=== PATIENT | female | born 1985 | race Caucasian/White ===

== ENCOUNTER 2019-06-10 09:12 | Outpatient (RCR) | payer OTHER, SELFPAY ==
--- NOTE | 2019-06-10 15:30 | OT.OP.EVAL ---
Visit Care Team Role Provider Type Richie Hargrove Attending Provider Non-Staff Primary Care Provider Referring Provider Specialty: Medical Address: [address] [place] [address], [place], [address] Fax: Email: Occupational Therapy Initial Evaluation OT Outpatient Adult Evaluation Start: 06/15/19 15:13 Freq: Status: Active Protocol: Document 06/10/19 15:13 AMS (Rec: 06/15/19 15:30 AMS [email or web address]) General Information Visit Start Time 09:30 Visit Stop Time 10:15 Total Visit Minutes 45 Plan of Care Dates 06/10/19-09/02/19 Insurance Information - EVAL CHARGE only Treatment Setting Outpatient Care Note Type Initial Evaluation Referring Physician Richie Hargrove MD Goals Shelter Goals 1. Patient will be modified independent with home exercise program for left third digit utilizing provided written and visual instructions from therapist. 2. Patient will present with increased ability to actively engage in meaningful activities with incorporation of the left hand due to reduced pain/discomfort; this will be evidenced by Teodora indicating 1-2 out of 10 on the Pain Assessment Grid relative to the left third digit. 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 PMH: Significant for ; headaches; seizures. Evaluation Findings: Teodora reported that she suffered a fracture to the radial side of L 3rd digit/distal proximal phalanx at PIP joint approximately a 1 and 1/2 ago; she denied h/o of therapy and /or use of splint. She reported that she did 'try to juliane tape' the 3rd digit to an adjacent finger. Mild swelling of 3rd digit noted; ( -) use of conservative methods of swelling management. Decreased strength of 3rd digit w/ extension; decreased stability of PIP joint noted with application of force radially. Increased mobility/ laxiety noted at PIP into extension when compared to R 3rd digit. Outpatient OT is recommended to address these areas in order to maximize Teodora's success w/ active engagement in meaningful activities in a variety of environments. Instructed in manual massage, conservative swelling management techniques ( elevation, manual massage, contrast baths, ice massage), basic joint protection ( avoidance of positions that encourage deformity) and exercises w/ use of medium soft red theraputty ( stabilization). Comment 12 weeks Treatment Frequency Once a Week Therapeutic Contents Active Range of Motion,Client Education,Cognitive Skills Development,Functional Activities,Home Exercise Program,Joint Protection, Manual Therapy,Education, Neurodevelopment Treatment, Neuromuscular Re-Education, Self-Care,Stretching/ Flexibility Activities, Therapeutic Activities, Therapeutic Exercises, Modalities,Sensory Re- education Modalities As Needed,As Prescribed
--- NOTE | 2019-08-18 11:32 | OT.OP.DC ---
Visit Care Team Role Provider Type Richie Hargrove Attending Provider Non-Staff Primary Care Provider Referring Provider Address: [address] [place] [address], [place], [address] Fax: Email: OT Outpatient OT Outpatient Adult Evaluation Start: 06/15/19 15:13 Freq: Status: Active Protocol: Document 06/10/19 15:13 AMS (Rec: 06/15/19 15:30 AMS [email or web address]) General Information Session Time Visit Start Time 09:30 Visit Stop Time 10:15 Total Visit Minutes 45 Visit Information Plan of Care Dates 06/10/19-09/02/19 Insurance Information - EVAL CHARGE only Setting Treatment Setting Outpatient Care Visit Type Note Type Initial Evaluation Referral Referring Physician Richie Hargrove MD Goals [facility] Goals Breaker Off Goals 1. Patient will be modified independent with home exercise program for left third digit utilizing provided written and visual instructions from therapist. 2. Patient will present with increased ability to actively engage in meaningful activities with incorporation of the left hand due to reduced pain/discomfort; this will be evidenced by Teodora indicating 1-2 out of 10 on the Pain Assessment Grid relative to the left third digit. 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 PMH: Significant for ; headaches; seizures. Evaluation Findings: Teodora reported that she suffered a fracture to the radial side of L 3rd digit/distal proximal phalanx at PIP joint approximately a 1 and 1/2 ago; she denied h/o of therapy and /or use of splint. She reported that she did 'try to juliane tape' the 3rd digit to an adjacent finger. Mild swelling of 3rd digit noted; ( -) use of conservative methods of swelling management. Decreased strength of 3rd digit w/ extension; decreased stability of PIP joint noted with application of force radially. Increased mobility/ laxiety noted at PIP into extension when compared to R 3rd digit. Outpatient OT is recommended to address these areas in order to maximize Teodora's success w/ active engagement in meaningful activities in a variety of environments. Instructed in manual massage, conservative swelling management techniques ( elevation, manual massage, contrast baths, ice massage), basic joint protection ( avoidance of positions that encourage deformity) and exercises w/ use of medium soft red theraputty ( stabilization). Plan Comment 12 weeks Treatment Frequency Once a Week Therapeutic Contents Active Range of Motion,Client Education,Cognitive Skills Development,Functional Activities,Home Exercise Program,Joint Protection, Manual Therapy,Education, Neurodevelopment Treatment, Neuromuscular Re-Education, Self-Care,Stretching/ Flexibility Activities, Therapeutic Activities, Therapeutic Exercises, Modalities,Sensory Re- education Modalities As Needed,As Prescribed Sensory Assessment Sensory Profile2 Functional Wrist/Hand Scan Hand Side OT Outpatient Treatment Note - Adult Start: 06/15/19 15:13 Freq: Status: Active Protocol: Document 08/18/19 11:30 AMS (Rec: 08/18/19 11:32 AMS [email or web address]) OT Outpatient Adult Treatment Note Visit Information Visit Number [id number] Setting Treatment Setting Outpatient Care Visit Type Note Type Discharge Summary - Subjective Observations Per [facility] [employer] staff, patient indicated over -the-telephone that they ( patient and her ) are in the middle of moving. Thus, patient to be d/c from outpatient OT. - Objective [facility] Goals ALL GOALS D/C OF 08/18/19 1. Patient will be modified independent with home exercise program for left third digit utilizing provided written and visual instructions from therapist. 2. Patient will present with increased ability to actively engage in meaningful activities with incorporation of the left hand due to reduced pain/discomfort; this will be evidenced by Teodora indicating 1-2 out of 10 on the Pain Assessment Grid relative to the left third digit. - - Assessment Assessment of Improvement Per [facility] [employer] staff, patient indicated over -the-telephone that they ( patient and her ) are in the middle of moving. Thus, patient to be d/c from outpatient OT. - Plan Therapy Recommendations Discharge from Occupational Therapy
== END 2019-08-25 07:42 ==
LOC: OT 09:12
PROVIDERS: PCP Family Medicine; Referring Provider Family Medicine; Visit Provider Family Medicine
DX: M79.642 Pain in left hand (principal)
CPT/HCPCS: 97165

== ENCOUNTER → 2019-08-31 09:30 | Outpatient (CLI) | payer OTHER, SELFPAY ==
[2019-09-01 19:00] LABS: Strep Grp B PCR NEG for Grp B Strep
== END ==
PROVIDERS: PCP Family Medicine; Visit Provider Family Medicine
DX: Z34.90 Encounter for supervision of normal pregnancy, unspecified, unspecified trimester (principal); Z3A.36 36 weeks gestation of pregnancy
CPT/HCPCS: 87653

== ENCOUNTER → 2019-09-27 12:47 | Outpatient (CLI) | payer OTHER, SELFPAY ==
[2019-09-29 19:05] LABS: COVID19 Sendout Not Detected (Not Detect)
== END ==
PROVIDERS: PCP Family Medicine; Visit Provider Physician Assistant
DX: Z11.59 Encounter for screening for other viral diseases (principal)
CPT/HCPCS: 87635

== ENCOUNTER 2019-09-30 19:04 | Inpatient (IN) | payer OTHER, SELFPAY ==
[2019-09-30 19:31] VITALS: BP 138/77
[2019-09-30 19:52] LABS: Add Manual Diff / Slide Review NO; Basophils Absolute Auto 100 /uL (0-100); Basophils Percent Auto 0.6 % (0-2); Eosinophils Absolute Auto 200 /uL (0-450); Eosinophils Percent Auto 1.6 % (2-4); Hematocrit 37.5 % (36-46); Hemoglobin 12.6 g/dL (12.0-16.0); Lymphocytes Absolute Auto 2300 /uL (1100-4500); Lymphocytes Percent Auto 17.9 % (25-40); Mean Corpuscular HGB Conc 33.6 % (30-36); Mean Corpuscular Hemoglobin 30.8 PG (26-34); Mean Corpuscular Volume 91.6 fL (80-100); Monocytes Absolute Auto 900 /uL (0-900); Monocytes Percent Auto 7.4 % (3-14); Neutrophils Absolute Auto 9200 /uL (1500-7000); Neutrophils Percent Auto 72.5 % (50-75); Platelet Count 222 X10^3/uL (150-400); Red Blood Cell Count 4.09 X10^6/uL (4.0-5.2); Red Cell Distribution Width 13.8 % (11.6-14.8); White Blood Cell Count 12.7 X10^3/uL (4.5-11.0)
[2019-09-30] MEDS: miSOPROStoL 25 MCG TABLET VAG (20:20)
[2019-10-01] MEDS: LACTATED RINGERS 1,000 ML 100 ML IV ×3 (02:26→08:45)
[2019-10-01] MEDS: FENT 2MCG/ML BUPIV 0.125% EPI 200 MCG/100 ML PLAST..BAG 10 MCG EPIDURAL (07:15)
--- NOTE | 2019-10-01 07:53 | P.HPOB_ITS ---
OB HPI Date/Time Date of admission: 09/30/19 Date Patient Seen: 10/01/19 Time Patient Seen: 08:00 History of Present Condition Chief complaint: maternity : 1 Para: 0 Estimated Date of Delivery: 09/23/19 Estimated Gestational Age (weeks): 41w1d Narrative: Teodora Garcia is a 34 year old at 41w1d who presented for IOL due to post-dates. Pt has been feeling well. She denies any contractions, vaginal bleeding, or LOF. She has been feeling her baby move regularly. Indications Indication for induction OB: post dates History of Present care: good care, initiated at week # (10) and pounds weight gain (52) Dating criteria: LMP confirmed by 1st trimester US Ultrasounds: normal 1st trimester US and normal mid trimester US Obstetrical complications: none Medical complications: none Preadmission Labs -: Antibody screen: negative, GBS status: negative, HBsAG: negative, HIV: negative and RPR/VDLR: negative -: Chlamydia screen: not detected and Gonorrhea screen: not detected -: Rubella: immune and Varicella: immune HCT: 37.5 HCAB: negative PAP: Normal Integrated screen: Negative 1 hr GTT: 129 Evaluation Evaluation Baseline heart rate: 130 Variability: Moderate (11-25) monitor accelerations: Present monitor decelerations: Absent Category of Tracing: I Cervical dilation (cm): 9 Cervical effacement (%): 100 station: -2 Laboratory results: Laboratory Tests 09/30/19 09/30/19 19:35 19:35 WBC 12.7 H RBC 4.09 Hgb 12.6 Hct 37.5 MCV 91.6 MCH 30.8 MCHC 33.6 RDW 13.8 Plt Count 222 Neut % (Auto) 72.5 Lymph % (Auto) 17.9 L [place] % (Auto) 7.4 Eos % (Auto) 1.6 L Baso % (Auto) 0.6 Neut # (Auto) 9200 H Lymph # (Auto) 2300 [place] # (Auto) 900 Eos # (Auto) 200 Baso # (Auto) 100 Blood Type O Positive Antibody Screen Negative Comments: AROM performed after informed consent with production of clear fluid [facility] Medical History (Updated 09/06/19 @ 22:24 by Aleksandra Gonzalez) Acne vulgaris (Acute) Allergies (Chronic ~1985) Asthma (Acute ~2000) Chicken pox (Resolved ~1988) Eczema (Chronic ~1987) Epilepsy (Acute) Gastric pain (Acute) Hemangioma (Acute ~2011) Migraine (Acute ~1990) Neck pain (Acute) Obesity (Acute) Pain in finger of left hand (Acute) Raynauds phenomenon (Acute) Seizure (Inactive ~1990) Surgical History (Updated 09/06/19 @ 22:24 by Aleksandra Gonzalez) Anesthesia (Resolved) History of biopsy (Acute ~2012) S/P tonsillectomy and adenoidectomy (Acute ~2001) [place] teeth removed (Acute ~2007) Family History (Updated 09/06/19 @ 22:28 by Aleksandra Gonzalez) Father Immunodeficiency Nut allergy Mother Skin cancer Skin cancer, basal cell Grandfather Lung cancer Smoker Grandmother Lung cancer Grandfather Parkinsons Diabetes mellitus Stroke Grandmother Alzheimer disease Parkinsons Lymphoma History of heart disease Hypertension Social History marital status: unmarried,living together household members: significant other pets and animals: No education level: master's degree occupational status: employed current occupational exposures/hazards: No Previous occupational history: Educator [employer] : moving this Summer special daniela needs: No Smoking Status: Never smoker second hand exposure: No alcohol intake: former (pre- : occasional) substance use type: does not use Meds Home Medications and Allergies Home Medications Medication Instructions Recorded Confirmed Type epinephrine 0.3 mg/0.3 mL 0.3 mg IM Q5-15M PRN 08/11/19 09/30/19 History injection, auto-injector prenat.vits,yarelis,awj-[id number]-nuncf 1 tab PO DAILY 08/11/19 09/30/19 History clindamycin phosphate 1 % topical 1 applictn TOP DAILY 08/17/19 09/30/19 History solution Allergies Allergy/AdvReac Type Severity Reaction Status Date / Time nickel Allergy Severe Swelling Verified 09/29/19 16:06 ibuprofen [IBUPROFEN] Allergy Unknown Rash Verified 09/29/19 16:06 onion Allergy Hives Verified 09/29/19 16:06 Peanuts Allergy Severe Anaphylaxis Uncoded 09/29/19 16:06 : carries an EpiPen. Exam Narrative Exam Narrative: Gen: NAD, sitting comfortably in bed, appears well CV: RRR, no murmurs Resp: clear to auscultation bilaterally Abd: soft, gravid, nontender, nondistended Ext: no edema Objective Labs Result Diagrams: 09/30/19 19:35 Labs: Laboratory Results - last 24 hr 09/30/19 09/30/19 19:35 19:35 WBC 12.7 H RBC 4.09 Hgb 12.6 Hct 37.5 MCV 91.6 MCH 30.8 MCHC 33.6 RDW 13.8 Plt Count 222 Neut % (Auto) 72.5 Lymph % (Auto) 17.9 L [place] % (Auto) 7.4 Eos % (Auto) 1.6 L Baso % (Auto) 0.6 Neut # (Auto) 9200 H Lymph # (Auto) 2300 [place] # (Auto) 900 Eos # (Auto) 200 Baso # (Auto) 100 Blood Type O Positive Antibody Screen Negative Assessment and Plan Assessment and Plan Assessment and Plan narrative: 34yo at 41w1d here for IOL for post-dates. Received one dose of cytotec overnight, then transitioned into active labor. AROM performed with production of clear fluid. No complications with . GBS negative, Rh positive. - Expectant management, anticipate - Epidural in place for pain control - GBS negative, no prophylaxis indicated - FHT reassuring
[2019-10-01] MEDS: OXYTOCIN PREMIX 30 UNIT/500 ML PLAST..BAG IV (10:25)
--- NOTE | 2019-10-01 15:09 | PM.OBPRVD ---
Labor & Delivery Delivery date: 10/01/19 Intrapartal events: None Cervical ripening method: per misoprostal protocol Delivery augmentation: rupture of membranes and pitocin Delivery monitor: external FHT Route of delivery: Episiotomy description: None L&D Laceration Description: Perineal - 2nd Degree Estimated blood loss (mL): 400 Anesthesia type: Epidural Complications: None Narrative: PROCEDURE: at 41w0d presented for IOL for post-dates and was admitted to Labor and Delivery. The patient progressed through the 1st stage over 8 hours. She received a single dose of cytotec, and progressed into active labor. Pain was controlled with an epidural. Pitocin was initiated due to stalling of her labor at 9cm. The patient progressed through the 2nd stage over 2.5 hours and delivered a viable female with APGARs 7/9 at 13:20 via without complications. Nuchal cord x1 was reduced after delivery. The perineum and vagina were inspected with 2nd degree perineal laceration repaired with 2-O Chromic. PREPROCEDURE DIAGNOSIS: Intrauterine at 41w0d GBS negative RH positive POSTPROCEDURE DIAGNOSIS: Intrauterine at 41w1d, delivered Same as preprocedure ROM APPEARANCE: Clear BABY A DELIVERY TIME: 13:20 BABY A WEIGHT: 7lb6oz BABY A NUCHAL CORD: x1, reduced after delivery PLACENTA DELIVERY TIME: 13:24 PLACENTA APPEARANCE: Intact Baby 1: gender: Female Presentation: vertex position: Right Occiput Anterior Placenta delivery description: Spontaneous cord vessel description: 3 Vessels score (1 min): 7 score (5 min): 9 Plan for aftercare: Normal care
[2019-10-01] MEDS: DERMOPLAST SPRAY 20% 60 ML 1 SPRAY TOP (16:13)
[2019-10-01] MEDS: OXYCODONE/ACETAMINOPHEN 5/325 TABLET 1 TAB PO ×2 (16:14→20:29)
[2019-10-01] MEDS: KETOROLAC 30 MG/ML VIAL IV (17:36)
[2019-10-02] MEDS: KETOROLAC 30 MG/ML VIAL IV ×3 (02:50→18:29)
[2019-10-02] MEDS: NAPROXEN 250 MG TABLET 500 MG PO (08:59)
[2019-10-02] MEDS: PRENATAL VIT,CALC/IRON/FOLIC 1 TABLET 1 TAB PO (09:00)
[2019-10-02] MEDS: DOCUSATE 100 MG CAPSULE PO (09:00)
--- NOTE | 2019-10-02 10:10 | P.DS_ITS ---
Discharge Providers Provider Date of admission: 09/30/19 19:04 Discharge Date: 10/03/19 Primary care physician: Richie Hargrove Consults: 10/02/19 14:20 Consult to Oil Dispatcher Routine Comment: Discharge provider: Twila Zhang MD Summary Hospital Course Date Patient Seen: 10/03/19 Time Patient Seen: 07:30 Procedures: Spontaneous vaginal delivery Hospital Course: The pt was admitted for IOL for post-dates. She received one dose of cytotec, and then transitioned into active labor. She received an epidural for pain control. Pitocin was initiated to augment labor, and AROM performed with clear fluid. The pt had a spontaneous vaginal delivery of a viable baby girl on 10/01/19. A 2nd degree laceration was then repaired. She tolerated delivery well. , the pts BPs were noted to be slightly elevated, but never to severe range or consistently to treatment range > 150/100. Labs were not consistent with pre-eclampsia/HELLP. She never required antihypertensives. At the time of discharge, she was voiding, ambulating, and passing flatus without difficulty. Her lochia was decreasing appropriately. She was with good latch. Her pain was adequately controlled, although she did have relatively significant perineal pain despite no hematoma or other abnormalities seen on exam. She will f/u in clinic in 6 weeks for check. Peripartum Data Delivery Method: Natural Vaginal Laceration description: Perineal - 2nd Degree Episiotomy description: None Procedures: Spontaneous vaginal delivery complications: other (elevated BP) 1: Gender: Female Disposition of : home Discharge Diagnosis (1) Elevated blood pressure reading: Status: Acute (2) (spontaneous vaginal delivery): Status: Acute Status at Discharge Cognitive/behavioral status at discharge: oriented Functional status at discharge: independent ambulation Overall status at discharge: patient is progressing back to baseline Time Spent with Patient Time attestation: Total time spent providing and/or coordinating discharge services: Objective Labs Result Diagrams: 10/02/19 11:21 10/02/19 11:21 Discharge Plan Discharge Plan Patient Disposition: Home Discharge orders & Medications Prescriptions: New acetaminophen 325 mg Tablet 650 mg PO Q6HR PRN (Reason: Pain, Mild (1-3)) Qty: 30 RF: 0 Dermoplast (with menthol) 20-0.5 % Aerosol 1 spray topical Q1HR PRN (Reason: perineal pain) Qty: 56 RF: 0 naproxen 250 mg Tablet 500 mg PO BIDWM Qty: 30 RF: 0 oxycodone-acetaminophen 5-325 mg Tablet 1 tab PO Q4HR PRN (Reason: Pain, Moderate (4-6)) Qty: 10 RF: 0 docusate sodium [DOK] 100 mg Capsule 100 mg PO DAILY Qty: 30 RF: 0 Wym-W-Zfclqm Cream 1 applic topical PRN PRN (Reason: Tenderness) Qty: 15 RF: 0 Continued clindamycin phosphate 1 % solution 1 applictn TOP DAILY RF: 0 prenat.vits,yarelis,ebe-yvnc-fealy Tablet 1 tab PO DAILY RF: 0 epinephrine [EpiPen] 0.3 mg/0.3 mL auto-injector 0.3 mg IM Q5-15M PRN (Reason: Anaphylaxis) RF: 0 Follow up/Referrals: Richie Hargrove [Primary Care Provider] - Twila Zhang MD [Physician] - 6 Weeks (Pt will call the office for appointment) Diet/Activity/Treatments Diet: Regular Activity: pelvic rest Skin/Wound/Dressing Care Report to your healthcare provider any signs of infection, such as:: chills, fever, increased pain and unusual drainage Visit Report/Discharge Packet Instructions: DI for Labor and Delivery, Vaginal Stand Alone Forms: Discharge: Care Visit Report Forms: Patient Portal/API, Stroke Signs & Symptoms Discharge Data Primary Care Provider: Richie Hargrove Discharges patient from system. Discharge Date/Time: 10/03/19 12:45
[2019-10-02 10:56] LABS: Creatinine Urine Random 43.8 mg/dL; Protein (Total) Urine Random 13 mg/dL (0-12); Protein Creatinine Ratio Urine 0.29 GRAM/24H
[2019-10-02 11:27] LABS: Add Manual Diff / Slide Review NO; Basophils Absolute Auto 0 /uL (0-100); Basophils Percent Auto 0.4 % (0-2); Eosinophils Absolute Auto 200 /uL (0-450); Eosinophils Percent Auto 1.5 % (2-4); Hematocrit 28.9 % (36-46); Hemoglobin 9.9 g/dL (12.0-16.0); Lymphocytes Absolute Auto 1700 /uL (1100-4500); Lymphocytes Percent Auto 14.8 % (25-40); Mean Corpuscular HGB Conc 34.5 % (30-36); Mean Corpuscular Hemoglobin 31.5 PG (26-34); Mean Corpuscular Volume 91.3 fL (80-100); Monocytes Absolute Auto 800 /uL (0-900); Monocytes Percent Auto 6.7 % (3-14); Neutrophils Absolute Auto 8800 /uL (1500-7000); Neutrophils Percent Auto 76.6 % (50-75); Platelet Count 175 X10^3/uL (150-400); Red Blood Cell Count 3.16 X10^6/uL (4.0-5.2); Red Cell Distribution Width 13.7 % (11.6-14.8); White Blood Cell Count 11.5 X10^3/uL (4.5-11.0)
[2019-10-02 11:39] LABS: Alanine Aminotransferase 13 IU/L (<35); Albumin 2.9 g/dL (3.5-5.0); Albumin Globulin Ratio 1.1 (1.0-2.8); Alkaline Phosphatase 63 U/L (38-126); Aspartate Aminotransferase 28 IU/L (14-36); BUN Creatinine Ratio 14.1 (6-22); Bilirubin Total 0.3 mg/dL (0.2-1.3); Blood Urea Nitrogen 10 mg/dL (7-17); Calcium 8.8 mg/dL (8.4-10.2); Carbon Dioxide 25 mmol/L (22-32); Chloride 105 mmol/L (98-107); Estimated Glomerular Filt Rate > 60.0 mL/min (>60); Globulin 2.7 g/dL (1.7-4.1); Glucose 81 mg/dL (70-100); HEMOLYSIS < 15 (0-50); Potassium 4.2 mmol/L (3.4-5.1); Sodium 133 mmol/L (137-145); Total Protein 5.6 g/dL (6.3-8.2)
[2019-10-02] MEDS: DERMOPLAST SPRAY 20% 60 ML 1 SPRAY TOP (18:28)
--- NOTE | 2019-10-02 20:01 | PM.OBPN.1 ---
Subjective - OB Subjective Date Patient Seen: 10/02/19 Time Patient Seen: 09:15 Interval history: Pt reports that she has significant perineal pain. She used Percocet twice, in addition to Toradol. She has an allergy to Ibuprofen, but is able to take Naprosyn. She did not find this helpful, however. Her lochia is decreasing appropriately. She is breastfeedig with good latch. She has passed flatus. She denies significant headache, RUQ abdominal pain, vision changes. She has minimal swelling. Exam Narrative Exam Narrative: Gen: NAD, sitting comfortably in bed, appears well CV: RRR, no murmurs Resp: clear to auscultation bilaterally Abd: soft, appropriately tender, slightly distended but not tympanic, normoactive bowel sounds, fundus firm and below the umbilicus Ext: trace pitting edema Neuro: no clonus : perineum with sutures in place and intact, no significant hematoma Objective Labs Result Diagrams: 10/02/19 11:21 10/02/19 11:21 Labs: Laboratory Results - last 24 hr 10/02/19 10/02/19 10/02/19 10:15 11:21 11:21 WBC 11.5 H RBC 3.16 L Hgb 9.9 L Hct 28.9 L MCV 91.3 MCH 31.5 MCHC 34.5 RDW 13.7 Plt Count 175 Neut % (Auto) 76.6 H Lymph % (Auto) 14.8 L [place] % (Auto) 6.7 Eos % (Auto) 1.5 L Baso % (Auto) 0.4 Neut # (Auto) 8800 H Lymph # (Auto) 1700 [place] # (Auto) 800 Eos # (Auto) 200 Baso # (Auto) 0 Sodium 133 L Potassium 4.2 Chloride 105 Carbon Dioxide 25 BUN 10 Creatinine 0.71 Estimated GFR > 60.0 BUN/Creatinine Ratio 14.1 Glucose 81 Calcium 8.8 Total Bilirubin 0.3 AST 28 ALT 13 Alkaline Phosphatase 63 Total Protein 5.6 L Albumin 2.9 L Globulin 2.7 Albumin/Globulin Ratio 1.1 U Random Total Protein 13 H Urine Creatinine 43.8 Protein/Creatinin Ratio 0.29 Assessment & Plan Assessment and Plan (1) (spontaneous vaginal delivery): Status: Acute (2) Elevated blood pressure reading: Status: Acute Plan Comments: 34yo PPD #1 s/p without complications. Pt with ongoing perineal pain, no evidence of complications with 2nd degree laceration repaired after delivery. BPs intermittently elevated, none to severe range. Pre-eclampsia/HELLP labs obtained - Pr/Cr ratio just under 0.3 cut-off, at 0.29, therefore does not meet pre-eclampsia criteria with other labs normal as well. - Normal care - Continue to monitor BPs closely. If > 150/100 consistently, will plan to treat - support Dispo: Plan for d/c tomorrow Time Spent With Patient Time: Total time spent is greater than 50% in coordination of care (as documented) at patient's floor/unit and/or counseling patient: Time with patient: 25 - 35 minutes
[2019-10-03] MEDS: KETOROLAC 30 MG/ML VIAL IV (05:40)
[2019-10-03 07:47] VITALS: BP 136/79; PULSE 69; RESP 17; TEMP 37.1
[2019-10-03] MEDS: PRENATAL VIT,CALC/IRON/FOLIC 1 TABLET 1 TAB PO (07:53)
[2019-10-03] MEDS: DOCUSATE 100 MG CAPSULE PO (07:53)
== END 2019-10-03 12:45 | disposition home or self-care (01) | DRG 807 ==
PROVIDERS: Admitting Provider Family Medicine; PCP Family Medicine; Referring Provider Family Medicine; Visit Provider Family Medicine
DX: O48.0 Post-term pregnancy (principal); Z37.0 Single live birth; Z3A.41 41 weeks gestation of pregnancy; O70.1 Second degree perineal laceration during delivery; O69.81X0 Labor and delivery complicated by cord around neck, without compression, not applicable or unspecified; R03.0 Elevated blood-pressure reading, without diagnosis of hypertension
CPT/HCPCS: 01967; 36415; 59050; 59200; 59410; 80053; 82570; 84156; 85025; 86850; 86900; 86901; G0379; J1885; J2590